=== PATIENT | male | born 1970 | race Two or more races ===

== ENCOUNTER 2025-04-29 07:50 | Emergency (ER) | payer OTHER ==
[~2025-04-29] VITALS: Ht 180.3 cm; Wt 75.7 kg
[2025-04-29 07:59] VITALS: BP 119/83; O2SAT 100
[2025-04-29 12:36] LABS: BASO % 1.1 % (0.1-1.2); EOS # 0.07 (0.04-0.54); EOS % 1.6 % (0.7-7.0); LYMPH # 1.51 (1.18-3.74); LYMPH % 34.4 % (19.3-53.1); MEAN PLATELET VOLUME 10.60 fl (9.4-12.4); MONO # 0.42 (0.24-0.82); MONO % 9.6 % (4.7-12.5); NEUT # 2.33 (1.56-6.13); NEUT % 53.1 % (34.0-71.1); RED CELL DISTRIBUTION WIDTH 11.5 % (11.6-14.4)
[2025-04-29 13:07] LABS: ALT/SGPT 29 U/L (12-78); AST/SGOT 20 U/L (15-37); BILIRUBIN TOTAL 1.07 mg/dL (0.3-1.2); BUN CREA RATIO 23 (7.0-25.0); CREATININE SERUM 0.87 mg/dL (0.70-1.30); GFR 91.10; GLOBULINA 4.0 G/DL (2.4-3.5); GLUCOSE FASTING 92 mg/dL (65-100); OSMOLALITY SERUM 287 MOSM/KG (275-295)
[2025-04-29] MEDS ORDERED: METRONIDAZOLE500 MG PO (15:24)
[2025-04-29] MEDS ORDERED: CIPRO500 MG PO (15:24)
== END 2025-04-29 17:44 | disposition home or self-care (01) ==
LOC: ER 08:35
PROVIDERS: Preventive Medicine Public Health & General Preventive Medicine
DX: K40.90 Unilateral inguinal hernia, without obstruction or gangrene, not specified as recurrent (principal); Z88.6 Allergy status to analgesic agent

== ENCOUNTER 2025-06-15 06:00 | Day surgery (SDC) | payer OTHER ==
[2025-06-09 09:34] VITALS: BP 111/77
[2025-06-09 09:34] LABS: BASO % 1.2 % (0.1-1.2); EOS # 0.15 (0.04-0.54); EOS % 3.6 % (0.7-7.0); LYMPH # 1.66 (1.18-3.74); LYMPH % 39.7 % (19.3-53.1); MEAN PLATELET VOLUME 10.80 fl (9.4-12.4); MONO # 0.47 (0.24-0.82); MONO % 11.2 % (4.7-12.5); NEUT # 1.84 (1.56-6.13); NEUT % 44.1 % (34.0-71.1); RED CELL DISTRIBUTION WIDTH 11.6 % (11.6-14.4)
[2025-06-09 09:50] LABS: INR 1.04
[2025-06-09 09:54] LABS: ALT/SGPT 39.0 U/L (12-78); AST/SGOT 21.0 U/L (15-37); BILIRUBIN TOTAL 0.98 mg/dL (0.3-1.2); BUN CREA RATIO 20.0 (7.0-25.0); CREATININE SERUM 0.82 mg/dL (0.70-1.30); GFR 97.54; GLOBULINA 4.1 G/DL (2.4-3.5); GLUCOSE FASTING 102.0 mg/dL (65-100); OSMOLALITY SERUM 286.0 MOSM/KG (275-295)
[2025-06-09 10:13] LABS: URINE APPEARANCE Clear; URINE BILIRRUBIN Negative (NEGATIVE); URINE BLOOD Negative; URINE COLOR Dark Yellow; URINE GLUCOSE Negative (NEGATIVE); URINE KETONE Trace (NEGATIVE); URINE LEUKOCYTE Negative; URINE NITRATE Negative; URINE PROTEIN Negative (NEGATIVE); URINE UROBILINOGEN 0.2 E.U./dl
[2025-06-09 10:18] LABS: URINE EPITHELIAL CELLS 2.6 uL (0.0-38.8); URINE RBC 12.4 uL (0.0-20.8); URINE WBC 2.4 uL (0.0-23.2)
[2025-06-09 10:41] LABS: URINE BACTERIA 2.3 uL (0.0-1933); URINE CAST 0.29 uL (0.0-1.40)
[~2025-06-15] VITALS: Ht 180.3 cm; Wt 73.5 kg
[~2025-06-15 06:00] MED LIST: CIPRO500 MG PO; METRONIDAZOLE500 MG PO
[2025-06-15] MEDS ORDERED: CEFAZOLIN SODIUM 1,000 MG VIAL IV ONE (08:00)
[2025-06-15] MEDS ORDERED: SUGAMMADEX SODIUM 200 MG/2 ML VIAL IV ONE (10:15)
== END 2025-06-15 13:20 | disposition home or self-care (01) ==
LOC: CIR.AMB 06:00
PROVIDERS: ATTEND Surgery
DX: K40.90 Unilateral inguinal hernia, without obstruction or gangrene, not specified as recurrent (principal); Z88.6 Allergy status to analgesic agent
CPT/HCPCS: 49650; C1781

== ENCOUNTER 2025-06-27 11:00 | Emergency (ER) | payer OTHER ==
[~2025-06-27] VITALS: Ht 180.3 cm; Wt 70.3 kg
[2025-06-27] MEDS ORDERED: GUAIFENESIN 200 MG/10 ML BLIST.PACK PO ONE (13:00)
[2025-06-27] MEDS ORDERED: ACETAMINOPHEN 500 MG GEL..CAP PO ONE (13:00)
[2025-06-27 14:04] LABS: COVID-19 AG NEGATIVE (NEGATIVE)
== END 2025-06-27 14:30 | disposition home or self-care (01) ==
LOC: ER 11:00
PROVIDERS: General Practice
DX: B34.9 Viral infection, unspecified (principal); Z88.6 Allergy status to analgesic agent; Z20.822 Contact with and (suspected) exposure to COVID-19

== ENCOUNTER → 2025-07-08 | Emergency (ER) | payer OTHER ==
[~2025-07-08] VITALS: Ht 180.3 cm; Wt 71.7 kg
== END | disposition home or self-care (01) ==
LOC: ER 18:14
DX: M79.606 Pain in leg, unspecified (principal); Z88.0 Allergy status to penicillin